=== PATIENT | male | born 1935 | race Caucasian/White ===

== ENCOUNTER 2018-07-23 06:29 | Day surgery (SDC) | payer MEDICARE ==
[2018-07-23] MEDS ORDERED: LACTATED RINGERS 1,000 ML IV ONE (06:57)
[2018-07-23] MEDS ORDERED: fentaNYL 250 MCG/5 ML VIAL IVP ONE (07:29)
[2018-07-23] MEDS ORDERED: MIDAZOLAM 2 MG/2 ML VIAL IVP ONE (07:29)
[2018-07-23 09:00] VITALS: BP 119/57
== END 2018-07-23 06:30 | disposition home or self-care (01) ==
LOC: SDS 06:29
PROVIDERS: ATTEND Surgery
PROC: 0DBN8ZZ Excision of Sigmoid Colon, Via Natural or Artificial Opening Endoscopic (ICD-10-PCS; principal; 2018-07-23 07:30)
DX: R19.4 Change in bowel habit (principal); D12.5 Benign neoplasm of sigmoid colon; K64.8 Other hemorrhoids; G47.30 Sleep apnea, unspecified; I10 Essential (primary) hypertension; I25.2 Old myocardial infarction; E66.9 Obesity, unspecified; Z68.34 Body mass index [BMI] 34.0-34.9, adult
CPT/HCPCS: 45380; J3010; J7120

== ENCOUNTER 2020-07-17 10:20 | Outpatient (CLI) | payer MEDICARE | END 2020-07-17 10:21 | disposition home or self-care (01) | LOC: DI 10:20 | PROVIDERS: ATTEND Internal Medicine | DX: R01.1 Cardiac murmur, unspecified (principal); I10 Essential (primary) hypertension; Z86.79 Personal history of other diseases of the circulatory system; J18.9 Pneumonia, unspecified organism; I35.0 Nonrheumatic aortic (valve) stenosis | CPT/HCPCS: 93306 ==

== ENCOUNTER 2021-01-11 17:10 | Outpatient (CLI) | payer MEDICARE ==
--- NOTE | 2021-01-12 08:13 | XRAY Report ---
PROCEDURE: Chest 2 View X-Ray INDICATIONS: Dyspnea TECHNIQUE: 2 view(s) of the chest. COMPARISON: None. FINDINGS: Surgical changes and devices: None. Lungs and pleura: No pleural effusions or pneumothorax. Lungs are clear. Mediastinum: Mediastinal contours are normal. Heart size is normal. Bones and chest wall: No suspicious bony abnormalities. Soft tissues appear unremarkable. IMPRESSION: No acute cardiopulmonary process demonstrated radiographically. Reviewed by: Tommie Jackman MD on 01/12/2021 8:11 AM PDT Approved by: Tommie Jackman MD on 01/12/2021 8:11 AM PDT Station ID: [id number]
== END 2021-01-11 17:11 | disposition home or self-care (01) ==
LOC: DI 17:10
PROVIDERS: ATTEND Internal Medicine
DX: R06.09 Other forms of dyspnea (principal)

== ENCOUNTER 2021-03-22 13:08 | Outpatient (CLI) | payer MEDICARE | END 2021-03-22 13:09 | disposition home or self-care (01) | LOC: COV 13:08 | PROVIDERS: ATTEND Internal Medicine Cardiovascular Disease | DX: Z01.812 Encounter for preprocedural laboratory examination (principal); R06.00 Dyspnea, unspecified; Z20.822 Contact with and (suspected) exposure to COVID-19 ==

== ENCOUNTER 2021-08-12 15:29 | Outpatient (CLI) | payer MEDICARE ==
--- NOTE | 2021-08-12 17:45 | XRAY Report ---
PROCEDURE: Elbow 3 View RT INDICATIONS: RIGHT ELBOW PAIN TECHNIQUE: 3 views of the elbow were acquired. COMPARISON: None FINDINGS: Bones: No fractures or dislocations. Severe elbow joint osteoarthritis. Numerous calcifications proj ect over the elbow joint suspicious for ossified intra-articular loose bodies. Soft tissues: No elbow joint effusion. No suspicious soft tissue calcifications. IMPRESSION: Severe right elbow joint osteoarthritis. Possible numerous ossified intra-articular loose bodies. Reviewed by: Ana Hurst MD, PhD on 08/12/2021 5:43 PM PST Approved by: Ana Hurst MD, PhD on 08/12/2021 5:43 PM PST Station ID: [id number]
--- NOTE | 2021-08-12 17:52 | XRAY Report ---
PROCEDURE: Shoulder 3 View LT INDICATIONS: LEFT SHOULDER PAIN TECHNIQUE: Views of the location were acquired. COMPARISON: None. FINDINGS: Bones: No fractures or dislocations. No suspicious bony lesions. The left shoulder has joint spac e narrowing of the glenohumeral joint with subchondral cystic changes consistent with osteoarthritis. Soft tissues: No suspicious soft tissue calcifications. IMPRESSION: 1. No acute abnormality of the left shoulder. 2. Osteoarthritis of the left glenohumeral joint. Reviewed by: Margarito Adam on 08/12/2021 5:51 PM PST Approved by: Margarito Adam on 08/12/2021 5:51 PM PST Station ID: [id number]
== END 2021-08-12 15:30 | disposition home or self-care (01) ==
LOC: DI 15:29
PROVIDERS: ATTEND Orthopaedic Surgery
DX: M19.012 Primary osteoarthritis, left shoulder (principal); M19.021 Primary osteoarthritis, right elbow

== ENCOUNTER 2022-06-16 08:00 | Outpatient (CLI) | payer MEDICARE ==
[2022-06-16 16:21] LABS: BASOPHILS % (AUTO) 0.3 %; EOSINOPHILS # (AUTO) 0.2 10^3/uL (0.0-0.7); EOSINOPHILS % (AUTO) 2.4 %; HCT - HEMATOCRIT 47.5 % (42.0-52.0); HGB - HEMOGLOBIN 15.9 g/dL (14.0-18.0); LYMPHOCYTES # (AUTO) 1.7 10^3/uL (1.5-3.5); MEAN CORPUSCULAR HEMOGLOBIN 31.4 pg (27.0-31.0); MEAN CORPUSCULAR HGB CONC 33.5 g/dL (32.0-36.0); MEAN CORPUSCULAR VOLUME 93.7 fL (80.0-94.0); MEAN PLATELET VOLUME 9.8 fL (7.4-11.4); MONOCYTES # (AUTO) 0.9 10^3/uL (0.0-1.0); NEUTROPHILS # (AUTO) 3.9 10^3/uL (1.5-6.6); NEUTROPHILS % (AUTO) 58.2 %; PLT - PLATELET COUNT 175 10^3/uL (130-450); RED BLOOD COUNT 5.07 10^6/uL (4.70-6.10); RED CELL DISTRIBUTION WIDTH 12.3 % (12.0-15.0); WHITE BLOOD COUNT 6.7 x10^3/uL (4.8-10.8)
[2022-06-16 16:40] LABS: ALBUMIN 4.6 g/dL (3.2-5.5); ALBUMIN/GLOBULIN RATIO 1.5 (1.0-2.2); ALKALINE PHOSPHATASE 83 IU/L (42-121); ALT ALANINE AMINOTRANSFERASE 23 IU/L (10-60); AST ASPARTATE AMINOTRANSFERASE 30 IU/L (10-42); BILIRUBIN,TOTAL 0.8 mg/dL (0.2-1.0); BUN - BLOOD UREA NITROGEN 29 mg/dL (6-20); CALCIUM 9.3 mg/dL (8.5-10.3); CARBON DIOXIDE - CO2 26 mmol/L (21-32); CHLORIDE 100 mmol/L (101-111); CHOL/HDL RATIO 2.1 (<5.0); CHOLESTEROL 149 mg/dL; CK- CREATINE KINASE 79 IU/L (22-269); CREATININE 1.2 mg/dL (0.6-1.2); GFR - MDRD 57 (>89); GLUCOSE 104 mg/dL (70-100); HDL CHOLESTEROL 70 mg/dL; LDL CHOLESTEROL,CALCULATED 63 mg/dL; LDL/HDL RATIO 0.9 (<3.6); POTASSIUM 3.7 mmol/L (3.5-5.0); SODIUM 136 mmol/L (135-145); TOTAL PROTEIN 7.7 g/dL (6.7-8.2); TRIGLYCERIDES 81 mg/dL; VLDL CHOLESTEROL 16 mg/dL
[2022-06-16 16:43] LABS: PSA TOTAL 8.18 ng/mL (0.000-2.000)
[2022-06-16 16:50] LABS: THYROID STIMULATING HORMONE 5.27 uIU/mL (0.34-5.60)
[2022-06-16 16:51] LABS: FREE T4 (FREE THYROXINE) 0.79 ng/dL (0.58-1.64)
[2022-06-16 17:06] LABS: PSA FREE 1.38 ng/mL (0.16-2.81)
[2022-06-16 19:47] LABS: ESTIMATED AVERAGE GLUCOSE 134 mg/dL (70-100); HEMOGLOBIN A1c% 6.3 % (4.27-6.07)
== END 2022-06-16 23:59 | disposition home or self-care (01) ==
LOC: LAB.R 08:00
PROVIDERS: ATTEND Internal Medicine
DX: Z00.00 Encounter for general adult medical examination without abnormal findings (principal); R63.4 Abnormal weight loss; R63.0 Anorexia; I35.0 Nonrheumatic aortic (valve) stenosis; N40.0 Benign prostatic hyperplasia without lower urinary tract symptoms; I25.10 Atherosclerotic heart disease of native coronary artery without angina pectoris; K21.9 Gastro-esophageal reflux disease without esophagitis; Z86.010 Personal history of colon polyps; R73.9 Hyperglycemia, unspecified; E78.5 Hyperlipidemia, unspecified; I10 Essential (primary) hypertension; F09 Unspecified mental disorder due to known physiological condition; G47.33 Obstructive sleep apnea (adult) (pediatric); K27.9 Peptic ulcer, site unspecified, unspecified as acute or chronic, without hemorrhage or perforation; J30.2 Other seasonal allergic rhinitis; E03.8 Other specified hypothyroidism
CPT/HCPCS: 80053; 80061; 82550; 82607; 83036; 83721; 84153; 84154; 84439; 84443; 85025; 86780

== ENCOUNTER 2022-08-24 15:05 | Outpatient (CLI) | payer MEDICARE ==
--- NOTE | 2022-08-25 11:41 | CT Report ---
PROCEDURE: CT sinus without contrast INDICATIONS: CHRONIC SINUSITIS TECHNIQUE: Noncontrast 3.0 mm axial images acquired from the frontal sinuses to the mid-sella, with coronal and sagittal reformats. For radiation dose reduction, the following was used: automated exposure control , adjustment of mA and/or kV according to patient size. COMPARISON: None. FINDINGS: Image quality: Excellent. Maxillary Sinuses: No bony remodeling or destruction. Sinuses are clear. Ethmoid Air Cells: No bony remodeling or destruction. Sinuses are clear. Sphenoid Sinuses: No bony remodeling or destruction. Sinuses are clear. Frontal Sinuses: No bony remodeling or destruction. Sinuses are clear. Ostiomeatal Complexes: Ostiomeatal complexes are patent. No Maribel cells. Miscellaneous: Visualized intra-orbital contents are normal. No charlie bullosa. No nasal septal deviation. Dense atherosclerotic vascular calcification IMPRESSION: 1. Unremarkable CT of the paranasal sinuses Reviewed by: Calin Diana MD on 08/25/2022 10:40 AM [facility] Approved by: Calin Diana MD on 08/25/2022 10:40 AM [facility] Station ID: [id number]
== END 2022-08-24 15:06 | disposition home or self-care (01) ==
LOC: DI 15:05
PROVIDERS: ATTEND Internal Medicine
DX: J32.9 Chronic sinusitis, unspecified (principal)

== ENCOUNTER 2022-09-09 14:31 | Outpatient (CLI) | payer MEDICARE ==
[2022-09-13 13:10] LABS: ATYPICAL pANCA <1:20 titer (Neg:<1:20); CYTOPLASMIC (C-ANCA) <1:20 titer (Neg:<1:20); PERINUCLEAR (P-ANCA) <1:20 titer (Neg:<1:20)
== END 2022-09-09 14:32 | disposition home or self-care (01) ==
LOC: LAB 14:31
PROVIDERS: ATTEND Internal Medicine
DX: J32.9 Chronic sinusitis, unspecified (principal)
CPT/HCPCS: 86037

== ENCOUNTER 2023-05-19 13:51 | Outpatient (CLI) | payer MEDICARE | END 2023-05-19 13:52 | disposition home or self-care (01) | LOC: DI 13:51 | PROVIDERS: ATTEND Internal Medicine | DX: I08.2 Rheumatic disorders of both aortic and tricuspid valves (principal); I77.810 Thoracic aortic ectasia | CPT/HCPCS: 93306 ==